=== PATIENT | male | born 1995 | race Caucasian/White ===

== ENCOUNTER 2018-07-25 02:55 | Emergency (ER) | payer OTHER, SELFPAY ==
--- NOTE | 2018-07-25 03:30 | ER ---
Nurse's Notes [facility] Name: Moses Grey Age: 22 yrs Sex: Male : 1995 Arrival Date: 07/25/2018 Time: 02:56 Bed 14 Private MD: Diagnosis: Generalized rash Presentation: 07/25 03:09 Presenting complaint: Patient states: Rashes all over the body. Patient reports ao exposure to heat at work and was told it's given him rashes. Rashes are papular and raised with no fluid accumulation. Patient reports problem started a week ago. Transition of care: patient was not received from another setting of care. Onset of symptoms is unknown. Risk Assessment: Do you want to hurt yourself or someone else? Patient reports no desire to harm self or others. Initial Sepsis Screen: Does the patient meet any 2 criteria? No. Patient's initial sepsis screen is negative. Does the patient have a suspected source of infection? No. Patient's initial sepsis screen is negative. Care prior to arrival: None. 03:09 Method Of Arrival: Ambulatory ao 03:09 Acuity: LISSA 3 ao Historical: - Allergies: 03:12 No Known Allergies; ao - Home Meds: 03:12 None [Active]; ao - PMHx: 03:12 None; ao - PSHx: 03:12 None; ao - Immunization history:: Adult Immunizations up to date. - Social history:: Smoking status: Patient uses tobacco products, smokes two packs cigarettes per day. Patient uses alcohol, occasionally. Patient/guardian denies using street drugs, IV drugs. - Ebola Screening: : Patient negative for fever greater than or equal to 101.5 degrees Fahrenheit, and additional compatible Ebola Virus Disease symptoms Patient denies exposure to infectious person Patient denies travel to an Ebola-affected area in the 21 days before illness onset. Screenin:16 Abuse screen: Denies threats or abuse. Denies injuries from another. Nutritional ao screening: No deficits noted. Tuberculosis screening: No symptoms or risk factors identified. Fall Risk None identified. Assessment: 03:14 General: Appears in no apparent distress. comfortable, Behavior is calm, cooperative, ao appropriate for age. Pain: Complains of pain in All over the body. Neuro: Level of Consciousness is awake, alert, obeys commands, Oriented to person, place, time, situation, Moves all extremities. Full function Speech is normal, Facial symmetry appears normal. Cardiovascular: Heart tones S1 S2 Capillary refill < 3 seconds Patient's skin is warm and dry. Respiratory: Airway is patent Respiratory effort is even, unlabored, Respiratory pattern is regular, symmetrical. GI: Abdomen is non-distended. : No signs and/or symptoms were reported regarding the genitourinary system. EENT: No signs and/or symptoms were reported regarding the EENT system. Derm: Rash noted that is itchy, papular, red, raised. 03:56 Reassessment: DC given to patient. Pt agree with POC and to follow up with ao dermatologies. Vital Signs: 03:13 BP 144 / 83; Pulse 74; Resp 16; Temp 98.8(O); Pulse Ox 100% on R/A; Weight 92.99 kg ao (R); Height 5 ft. 5 in. (165.10 cm) (R); Pain 4/10; 03:13 Body Mass Index 34.11 (92.99 kg, 165.10 cm) ao ED Course: 02:56 Patient arrived in ED. ds1 03:09 Jerry Frank, RN is Primary Nurse. ao 03:12 Triage completed. ao 03:13 Arm band placed on right wrist. Patient placed in an exam room, on a stretcher, on ao pulse oximetry, Patient notified of wait time. 03:16 Patient has correct armband on for positive identification. Pulse ox on. NIBP on. ao 03:20 Aaron Castillo MD is Attending Physician. pkl 03:29 Ko Villanueva MD is Referral Physician. pkl 03:55 No provider procedures requiring assistance completed. Patient did not have IV access ao during this emergency room visit. Administered Medications: 03:35 Drug: SOLU-Medrol 125 mg Route: IM; Site: right deltoid; ao 03:51 Follow up: Response: No adverse reaction ea 03:55 Follow up: Response: No adverse reaction ao Outcome: 03:29 Discharge ordered by . pkl 03:56 Discharged to home ambulatory. ao 03:56 Condition: stable 03:56 Discharge instructions given to patient, Instructed on discharge instructions, follow up and referral plans. Demonstrated understanding of instructions, follow-up care, medications, Prescriptions given X 2. 04:00 Patient left the ED. ao Signatures: Aaron Castillo MD MD pkl Sanford, Demi ds1 Jerry Frank RN RN Michelle Blanca RN RN ea Corrections: (The following items were deleted from the chart) 03:18 03:09 Presenting complaint: Patient states: Rashes all over the body. Patient report ao exposure to heat at work and was told is given rashes. Rashes are like bumps with no fluid accumulation. Patient reports problem started a week ago ao
--- NOTE | 2018-07-25 03:30 | EDPHYS ---
Physician Documentation [facility] Name: Moses Grey Age: 22 yrs Sex: Male : 1995 Arrival Date: 07/25/2018 Time: 02:56 Bed 14 Private MD: ED Physician Aaron Castillo HPI: 07/25 03:26 This 22 yrs old Male presents to ER via Ambulatory with complaints of Rash. pkl 03:26 The rash is located on the body diffusely. The rash can be described as macular, pkl papular. Onset: The symptoms/episode began/occurred 1 week(s) ago. Associated signs and symptoms: Pertinent positives: itching. Historical: - Allergies: 03:12 No Known Allergies; ao - Home Meds: 03:12 None [Active]; ao - PMHx: 03:12 None; ao - PSHx: 03:12 None; ao - Immunization history:: Adult Immunizations up to date. - Social history:: Smoking status: Patient uses tobacco products, smokes two packs cigarettes per day. Patient uses alcohol, occasionally. Patient/guardian denies using street drugs, IV drugs. - Ebola Screening: : Patient negative for fever greater than or equal to 101.5 degrees Fahrenheit, and additional compatible Ebola Virus Disease symptoms Patient denies exposure to infectious person Patient denies travel to an Ebola-affected area in the 21 days before illness onset. ROS: 03:26 Eyes: Negative for injury, pain, redness, and discharge, ENT: Negative for injury, pkl pain, and discharge, Neck: Negative for injury, pain, and swelling, Cardiovascular: Negative for chest pain, palpitations, and edema, Respiratory: Negative for shortness of breath, cough, wheezing, and pleuritic chest pain, Abdomen/GI: Negative for abdominal pain, nausea, vomiting, diarrhea, and constipation, Back: Negative for injury and pain, : Negative for injury, bleeding, discharge, and swelling, MS/Extremity: Negative for injury and deformity. 03:26 Skin: Positive for rash, diffusely. 03:26 Neuro: Negative for altered mental status. Exam: 03:26 Head/Face: Normocephalic, atraumatic. Eyes: Pupils equal round and reactive to light, pkl extra-ocular motions intact. Lids and lashes normal. Conjunctiva and sclera are non-icteric and not injected. Cornea within normal limits. Periorbital areas with no swelling, redness, or edema. ENT: Nares patent. No nasal discharge, no septal abnormalities noted. Tympanic membranes are normal and external auditory canals are clear. Oropharynx with no redness, swelling, or masses, exudates, or evidence of obstruction, uvula midline. Mucous membranes moist. Neck: Trachea midline, no thyromegaly or masses palpated, and no cervical lymphadenopathy. Supple, full range of motion without nuchal rigidity, or vertebral point tenderness. No Meningismus. Chest/axilla: Normal chest wall appearance and motion. Nontender with no deformity. No lesions are appreciated. Cardiovascular: Regular rate and rhythm with a normal S1 and S2. No gallops, murmurs, or rubs. Normal PMI, no JVD. No pulse deficits. Respiratory: Lungs have equal breath sounds bilaterally, clear to auscultation and percussion. No rales, rhonchi or wheezes noted. No increased work of breathing, no retractions or nasal flaring. Abdomen/GI: Soft, non-tender, with normal bowel sounds. No distension or tympany. No guarding or rebound. No evidence of tenderness throughout. Back: No spinal tenderness. No costovertebral tenderness. Full range of motion. MS/ Extremity: Pulses equal, no cyanosis. Neurovascular intact. Full, normal range of motion. Neuro: Awake and alert, GCS 15, oriented to person, place, time, and situation. Cranial nerves II-XII grossly intact. Motor strength 5/5 in all extremities. Sensory grossly intact. Cerebellar exam normal. Normal gait. 03:26 Skin: rash can be described as pustular, raised, and is diffusely located. Vital Signs: 03:13 BP 144 / 83; Pulse 74; Resp 16; Temp 98.8(O); Pulse Ox 100% on R/A; Weight 92.99 kg ao (R); Height 5 ft. 5 in. (165.10 cm) (R); Pain 4/10; 03:13 Body Mass Index 34.11 (92.99 kg, 165.10 cm) ao MDM: 03:20 Patient medically screened. pkl 03:26 Data reviewed: vital signs, nurses notes. pkl Administered Medications: 03:35 Drug: SOLU-Medrol 125 mg Route: IM; Site: right deltoid; ao 03:51 Follow up: Response: No adverse reaction ea 03:55 Follow up: Response: No adverse reaction ao Disposition: 07/25/18 03:29 Discharged to Home. Impression: Generalized rash. - Condition is Stable. - Medication Reconciliation Form, Thank You Letter, Antibiotic Education, Prescription Opioid Use, Work release form form. - Follow up: Ko Villanueva MD; When: 2 - 3 days; Reason: Re-evaluation by your physician. - Problem is new. - Symptoms are unchanged. Signatures: Aaron Castillo MD MD pkl Jerry Frank RN RN Michelle Blanca RN, ea Corrections: (The following items were deleted from the chart) 04:00 03:29 07/25/2018 03:29 Discharged to Home. Impression: Generalized rash. Condition is ao Stable. Forms are Medication Reconciliation Form, Thank You Letter, Antibiotic Education, Prescription Opioid Use. Follow up: Ko Villanueva; When: 2 - 3 days; Reason: Re-evaluation by your physician. Problem is new. Symptoms are unchanged. pkl
[2018-07-25] MEDS ORDERED: METHYLPREDNISOLONE 125 MG INJ ONE (03:38)
== END 2018-07-25 04:00 | disposition home or self-care (01) ==
LOC: ER 02:55
DX: R21 Rash and other nonspecific skin eruption (principal); F17.210 Nicotine dependence, cigarettes, uncomplicated
CPT/HCPCS: 96372; 99283; J2930

== ENCOUNTER 2019-03-27 22:44 | Emergency (ER) | payer SELFPAY ==
[2019-03-27] MEDS ORDERED: MORPHINE 4 MG/ML SYR ONE (23:23)
--- NOTE | 2019-03-28 00:24 | EDPHYS ---
Physician Documentation [facility] Name: Moses Grey Age: 23 yrs Sex: Male : 1995 Arrival Date: 03/27/2019 Time: 22:52 Bed 7 Private MD: ED Physician Tayo Hughes HPI: 03/27 23:39 This 23 yrs old Male presents to ER via Ambulatory with complaints of INJURY rn TO RIBS. 23:39 The patient or guardian reports chest pain that is located primarily in the anterior rn chest wall. Onset: The symptoms/episode began/occurred just prior to arrival. The pain does not radiate. Associated signs and symptoms: Pertinent positives: None. Pertinent negatives: abdominal pain, cough, lightheadedness, nausea, near syncope, palpitations, shortness of breath, syncope, vomiting. The chest pain is described as stabbing. Duration: The patient or guardian reports a single episode, that is still ongoing. Modifying factors: The symptoms are alleviated by nothing. the symptoms are aggravated by deep breath, movement, palpation of area. Severity of pain: At its worst the pain was moderate in the emergency department the pain is unchanged. The patient has not experienced similar symptoms in the past. Reports playing shortstop, hit by softball left anterior chest, direct hit, reports pain to ribs and painful to take deep breath. No sob outside of pain. No hemoptysis. . Historical: - Allergies: 23:03 No Known Allergies; ea - Home Meds: 23:03 None [Active]; ea - PMHx: 23:03 None; ea - PSHx: 23:03 None; ea - Immunization history:: Adult Immunizations up to date. - Social history:: Smoking status: Patient/guardian denies using tobacco. - Ebola Screening: : No symptoms or risks identified at this time. - Family history:: not pertinent. - Hospitalizations: : No recent hospitalization is reported. ROS: 23:39 Constitutional: Negative for fever, chills, and weight loss, Neck: Negative for injury, rn pain, and swelling, Cardiovascular: Negative for palpitations, and edema, Respiratory: Negative for shortness of breath, cough, wheezing Abdomen/GI: Negative for abdominal pain, nausea, vomiting, diarrhea, and constipation, MS/Extremity: Negative for injury and deformity, Skin: Negative for injury, rash, and discoloration, Neuro: Negative for headache, weakness, numbness, tingling, and seizure. 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 Cardiovascular: Regular rate and rhythm with a normal S1 and S2. No gallops, murmurs, or rubs. Normal PMI, no JVD. No pulse deficits. Respiratory: No wheezing, mild splinting with deep breath, equal breath sounds otherwise. Abdomen/GI: sof,t non-tender Vital Signs: 23:04 BP 142 / 85; Pulse 98; Resp 20; Temp 98.6; Pulse Ox 99% ; Weight 95.25 kg; Height 5 ft. ea 9 in. (175.26 cm); 03/28 00:22 BP 121 / 70; Pulse 69; Resp 19; Pulse Ox 100% ; ea 00:35 Temp 98; ea 03/27 23:04 Body Mass Index 31.01 (95.25 kg, 175.26 cm) ea MDM: 03/27 22:52 Patient medically screened. rn 03/28 00:23 Differential diagnosis: Blunt Chest Trauma Chest Wall Contusion. Data reviewed: vital rn signs, nurses notes, radiologic studies, plain films, and as a result, I will discharge patient. Counseling: I had a detailed discussion with the patient and/or guardian regarding: the historical points, exam findings, and any diagnostic results supporting the discharge/admit diagnosis, radiology results, the need for outpatient follow up, to return to the emergency department if symptoms worsen or persist or if there are any questions or concerns that arise at home. Response to treatment: the patient's symptoms have markedly improved after treatment, and as a result, I will discharge patient. Special discussion: I discussed with the patient/guardian in detail that at this point there is no indication for admission to the hospital. It is understood, however, that if the symptoms persist or worsen the patient needs to return immediately for re-evaluation. 00:24 Test interpretation: by ED physician or midlevel provider: plain radiologic studies, rn CXR and rib series negative for pneumothorax or acute rib fracture.. 03/27 23:24 Order name: Ribs Left [facility] [place] 03/27 23:39 Order name: Cardiac monitoring; Complete Time: 00:10 rn 03/27 23:39 Order name: Pulse Ox Monitoring; Complete Time: 00:10 rn Administered Medications: 03/27 23:11 Drug: morphine 4 mg Route: IM; Site: right deltoid; ea 03/28 00:00 Follow up: Response: No adverse reaction; Pain is decreased ea Disposition: 03/28/19 00:24 Discharged to Home. Impression: Rib contusion, Contusion of left front wall of thorax. - Condition is Stable. - Discharge Instructions: Rib Contusion. - Prescriptions for Ibuprofen 800 mg Oral Tablet - take 1 tablet by ORAL route every 12 hours As needed take with food; 20 tablet. Ultram 50 mg Oral Tablet - take 1 tablet by ORAL route every 6 hours As needed; 20 tablet. - Work release form, Medication Reconciliation Form, Thank You Letter, Antibiotic Education, Prescription Opioid Use form. - Follow up: Private Physician; When: As needed; Reason: Recheck today's complaints, Re-evaluation by your physician. - Problem is new. - Symptoms have improved. Signatures: Dispatcher [employer] [facility] [place] Tayo Hughes MD MD rn Antunez, Elena, RN RN ea Corrections: (The following items were deleted from the chart) 03/27 23:40 23:24 Chest Pa And Lat (2 Views) ordered. [facility] 03/28 00:21 00:17 Chest Pa And Lat (2 Views)+RAD.RAD.BRZ ordered. [facility] 00:22 00:18 Ribs Left+RAD.RAD.BRZ ordered. [facility] 00:36 00:24 03/28/2019 00:24 Discharged to Home. Impression: Rib contusion; Contusion of left ea front wall of thorax. Condition is Stable. Discharge Instructions: Rib Contusion. Prescriptions for Ibuprofen 800 mg Oral Tablet - take 1 tablet by ORAL route every 12 hours As needed take with food; 20 tablet, Ultram 50 mg Oral Tablet - take 1 tablet by ORAL route every 6 hours As needed; 20 tablet. and Forms are Medication Reconciliation Form, Thank You Letter, Antibiotic Education, Prescription Opioid Use. Follow up: Private Physician; When: As needed; Reason: Recheck today's complaints, Re-evaluation by your physician. Problem is new. Symptoms have improved. rn
--- NOTE | 2019-03-28 00:24 | ER ---
Nurse's Notes [facility] Name: Moses Grey Age: 23 yrs Sex: Male : 1995 Arrival Date: 03/27/2019 Time: 22:52 Bed 7 Private MD: Diagnosis: Rib contusion;Contusion of left front wall of thorax Presentation: 03/27 23:00 Presenting complaint: Patient states: Pt reports he was hit by a softball on the left ea side of his ribs. Transition of care: patient was not received from another setting of care. Onset of symptoms was March 27, 2019. Risk Assessment: Do you want to hurt yourself or someone else? Patient reports no desire to harm self or others. Initial Sepsis Screen: Does the patient meet any 2 criteria? No. Patient's initial sepsis screen is negative. Does the patient have a suspected source of infection? No. Patient's initial sepsis screen is negative. Care prior to arrival: None. 23:00 Method Of Arrival: Ambulatory ea 23:00 Acuity: LISSA 4 ea Historical: - Allergies: 23:03 No Known Allergies; ea - Home Meds: 23:03 None [Active]; ea - PMHx: 23:03 None; ea - PSHx: 23:03 None; ea - Immunization history:: Adult Immunizations up to date. - Social history:: Smoking status: Patient/guardian denies using tobacco. - Ebola Screening: : No symptoms or risks identified at this time. - Family history:: not pertinent. - Hospitalizations: : No recent hospitalization is reported. Screenin:02 Abuse screen: Denies threats or abuse. Nutritional screening: No deficits noted. ea Tuberculosis screening: No symptoms or risk factors identified. Fall Risk None identified. Assessment: 23:03 General: Appears uncomfortable, Behavior is calm, cooperative, appropriate for age. ea Pain: Complains of pain in left lateral anterior chest. Neuro: Level of Consciousness is awake, alert, obeys commands, Oriented to person, place, time, situation. Cardiovascular: Patient's skin is warm and dry. Respiratory: Airway is patent Respiratory effort is even, unlabored, Respiratory pattern is regular, symmetrical. Derm: Skin is pink, warm \T\ dry. 03/28 00:28 Reassessment: Patient and/or family updated on plan of care and expected duration. Pain ea level reassessed. Patient is alert, oriented x 3, equal unlabored respirations, skin warm/dry/pink. Discharge instruction given to patient, verbalized he understanding of instruction. Pt left ED ambulatory with significant other, pt tolerating well. Vital Signs: 03/27 23:04 BP 142 / 85; Pulse 98; Resp 20; Temp 98.6; Pulse Ox 99% ; Weight 95.25 kg; Height 5 ft. ea 9 in. (175.26 cm); 03/28 00:22 BP 121 / 70; Pulse 69; Resp 19; Pulse Ox 100% ; ea 00:35 Temp 98; ea 03/27 23:04 Body Mass Index 31.01 (95.25 kg, 175.26 cm) ea ED Course: 03/27 22:52 Patient arrived in ED. narciso 22:52 Tayo Hughes MD is Attending Physician. rn 23:00 Michelle Easley RN is Primary Nurse. ea 23:02 Triage completed. ea 23:02 Patient has correct armband on for positive identification. Bed in low position. Call ea light in reach. 23:03 Arm band placed on right wrist. Patient placed in an exam room, on a stretcher, on ea pulse oximetry. 23:55 Ribs Left In Process Unspecified. EDMS 03/28 00:35 No provider procedures requiring assistance completed. Patient did not have IV access ea during this emergency room visit. Administered Medications: 03/27 23:11 Drug: morphine 4 mg Route: IM; Site: right deltoid; ea 03/28 00:00 Follow up: Response: No adverse reaction; Pain is decreased ea Outcome: 00:24 Discharge ordered by . rn 00:36 Discharged to home ambulatory, with significant other. ea 00:36 Condition: improved 00:36 Discharge instructions given to patient, Instructed on discharge instructions, follow up and referral plans. medication usage, Demonstrated understanding of instructions, follow-up care, medications, Prescriptions given X 2. 00:36 Patient left the ED. ea Signatures: Dispatcher [employer] Nidhi Aguilar Roman, MD MD rn Antunez, Elena, RN RN ea
--- NOTE | 2019-03-28 11:00 | RAD REPORT ---
EXAM DESCRIPTION: RAD - Ribs Left - 03/27/2019 11:52 pm CLINICAL HISTORY: The patient is 23 years old and is Male; PAIN TECHNIQUE: Frontal and oblique views of the left ribs and frontal view of the chest. COMPARISON: None. FINDINGS: LUNGS: Unremarkable. No consolidation. PLEURAL SPACE: Unremarkable. No pneumothorax. HEART: Unremarkable. No cardiomegaly. MEDIASTINUM: Unremarkable. BONES/JOINTS: Unremarkable. No acute fracture. IMPRESSION: No acute cardiopulmonary disease. Normal left rib x-rays. Electronically signed by: Cal Valero DO 03/28/2019 12:12 AM CDT Due to temporary technical issues with the PACS/Fluency reporting system, reports are being signed by the in house radiologist as a courtesy to ensure prompt reporting. The interpreting radiologist is f ully responsible for the content of the report.
== END 2019-03-28 00:36 | disposition home or self-care (01) ==
LOC: ER 22:44
DX: S20.212A Contusion of left front wall of thorax, initial encounter (principal); W21.07XA Struck by softball, initial encounter; Y93.89 Activity, other specified; Y92.9 Unspecified place or not applicable
CPT/HCPCS: 96372; 99284

== ENCOUNTER 2020-10-27 20:57 | Emergency (ER) | payer SELFPAY ==
[2020-10-27 23:02] LABS: SARS-COV-2 RT PCR POSITIVE (NEGATIVE)
--- NOTE | 2020-10-27 23:38 | EDPHYS ---
Physician Documentation [facility] Name: Moses Grey Age: 24 yrs Sex: Male : 1995 Arrival Date: 10/27/2020 Time: 21:00 Bed 26 Private MD: ED Physician Aaron Castillo HPI: 10/27 23:25 This 24 yrs old Male presents to ER via Ambulatory with complaints of Cough, pkl Congestion. 23:25 The patient or guardian reports cough, described as mild, with no sputum. Onset: The pkl symptoms/episode began/occurred 3 day(s) ago. Associated signs and symptoms: Pertinent positives: sore throat. Historical: - Allergies: 21:16 No Known Allergies; ll1 - PMHx: 21:16 None; ll1 - PSHx: 21:16 None; ll1 - Immunization history:: Flu vaccine is up to date. - Social history:: Smoking status: Patient reports the use of cigarette tobacco products, denies chronic smoking, but will smoke occasionally. ROS: 23:25 Eyes: Negative for injury, pain, redness, and discharge. pkl 23:25 ENT: Positive for sore throat. 23:25 Neck: Negative for stiffness. 23:25 Cardiovascular: Negative for chest pain. 23:25 Respiratory: Positive for cough, with no reported sputum. 23:25 Abdomen/GI: Negative for abdominal pain, nausea, vomiting, and diarrhea. 23:25 Back: Negative for acute changes. 23:25 : Negative for urinary symptoms. 23:25 MS/extremity: Negative for acute changes. 23:25 Skin: Negative for rash. 23:25 Neuro: Negative for altered mental status. Exam: 23:25 Head/Face: Normocephalic, atraumatic. Eyes: Pupils equal round and reactive to light, pkl extra-ocular motions intact. Lids and lashes normal. Conjunctiva and sclera are non-icteric and not injected. Cornea within normal limits. Periorbital areas with no swelling, redness, or edema. ENT: Nares patent. No nasal discharge, no septal abnormalities noted. Tympanic membranes are normal and external auditory canals are clear. Oropharynx with no redness, swelling, or masses, exudates, or evidence of obstruction, uvula midline. Mucous membranes moist. Neck: Trachea midline, no thyromegaly or masses palpated, and no cervical lymphadenopathy. Supple, full range of motion without nuchal rigidity, or vertebral point tenderness. No Meningismus. Chest/axilla: Normal chest wall appearance and motion. Nontender with no deformity. No lesions are appreciated. Cardiovascular: Regular rate and rhythm with a normal S1 and S2. No gallops, murmurs, or rubs. Normal PMI, no JVD. No pulse deficits. Respiratory: Lungs have equal breath sounds bilaterally, clear to auscultation and percussion. No rales, rhonchi or wheezes noted. No increased work of breathing, no retractions or nasal flaring. Abdomen/GI: Soft, non-tender, with normal bowel sounds. No distension or tympany. No guarding or rebound. No evidence of tenderness throughout. Back: No spinal tenderness. No costovertebral tenderness. Full range of motion. Skin: Warm, dry with normal turgor. Normal color with no rashes, no lesions, and no evidence of cellulitis. MS/ Extremity: Pulses equal, no cyanosis. Neurovascular intact. Full, normal range of motion. Neuro: Awake and alert, GCS 15, oriented to person, place, time, and situation. Cranial nerves II-XII grossly intact. Motor strength 5/5 in all extremities. Sensory grossly intact. Cerebellar exam normal. Normal gait. Vital Signs: 21:16 BP 129 / 79; Pulse 69; Resp 17; Temp 98.6; Pulse Ox 100% ; Weight 90.72 kg; Height 5 ll1 ft. 9 in. (175.26 cm); Pain 5/10; 21:36 BP 111 / 86; Pulse 85; Resp 18; Pulse Ox 98% on R/A; vg1 22:30 BP 115 / 80; Pulse 82; Resp 16; Pulse Ox 100% on R/A; vg1 23:30 BP 112 / 76; Pulse 80; Resp 18; Pulse Ox 99% on R/A; vg1 21:16 Body Mass Index 29.53 (90.72 kg, 175.26 cm) ll1 MDM: 21:18 Patient medically screened. pkl 23:25 Data reviewed: vital signs, nurses notes, lab test result(s). ED course: Discussed lab pkl results with patient. Advised to quarantine for 10 days. Follow up with PCP as needed. To return if symptoms are worse. Patient understood instructions. 01/11 21:26 Order name: Strep; Complete Time: 22:59 pkl 10/27 22:28 Order name: Throat Culture EDMS 10/27 23:03 Order name: COVID-19/FLU A+B; Complete Time: 23:24 EDMS Administered Medications: No medications were administered Disposition: 10/27/20 23:37 Discharged to Home. Impression: Positive Covid 19. - Condition is Stable. - Work release form, Medication Reconciliation Form, Thank You Letter, Antibiotic Education, Prescription Opioid Use form. - Follow up: Private Physician; When: 2 - 3 days; Reason: Re-evaluation by your physician. - Problem is new. - Symptoms have improved. Signatures: Dispatcher [employer] EDOK Aaron Castillo MD MD pkl Joy Martinez RN RN vg1 Jenny Bird RN RN ll1 Corrections: (The following items were deleted from the chart) 21:57 21:26 CORONAVIRUS+MR.LAB.BRZ ordered. EDOK EDMS 21:58 21:26 Influenza Screen (A \T\ B)+BA.LAB.BRZ ordered. EDOK EDMS 23:44 23:37 10/27/2020 23:37 Discharged to Home. Impression: Poitive Covid 19. Condition is pkl Stable. Forms are Medication Reconciliation Form, Thank You Letter, Antibiotic Education, Prescription Opioid Use. Follow up: Private Physician; When: 2 - 3 days; Reason: Re-evaluation by your physician. Problem is new. Symptoms have improved. pkl 23:54 23:44 10/27/2020 23:37 Discharged to Home. Impression: Positive Covid 19. Condition is vg1 Stable. Forms are Medication Reconciliation Form, Thank You Letter, Antibiotic Education, Prescription Opioid Use, Work release form. Follow up: Private Physician; When: 2 - 3 days; Reason: Re-evaluation by your physician. Problem is new. Symptoms have improved. pkl
--- NOTE | 2020-10-27 23:38 | ER ---
Nurse's Notes [facility] Name: Moses Grey Age: 24 yrs Sex: Male : 1995 Arrival Date: 10/27/2020 Time: 21:00 Bed 26 Private MD: Diagnosis: Positive Covid 19 Presentation: 10/27 21:16 Chief complaint: Patient states: Cough, congestion, sore throat for 3 days. No fever. ll1 Coronavirus screen: Client denies travel out of the [place] in the last 14 days. congestion, cough unrelated to allergies, sore throat, Client presents with at least one sign or symptom that may indicate coronavirus-19. Standard/surgical mask placed on the client. Ebola Screen: Patient denies travel to an Ebola-affected area in the 21 days before illness onset. Resp Distress? No respiratory distress is noted at this time. Initial Sepsis Screen: Does the patient meet any 2 criteria? No. Patient's initial sepsis screen is negative. Does the patient have a suspected source of infection? Yes: Productive cough/pneumonia. Risk Assessment: Do you want to hurt yourself or someone else? Patient reports no desire to harm self or others. Onset of symptoms was October 25, 2020. 21:16 Method Of Arrival: Ambulatory ll1 21:16 Acuity: LISSA 4 ll1 Historical: - Allergies: 21:16 No Known Allergies; ll1 - PMHx: 21:16 None; ll1 - PSHx: 21:16 None; ll1 - Immunization history:: Flu vaccine is up to date. - Social history:: Smoking status: Patient reports the use of cigarette tobacco products, denies chronic smoking, but will smoke occasionally. Screenin:36 Abuse screen: Denies threats or abuse. Nutritional screening: No deficits noted. vg1 Tuberculosis screening: No symptoms or risk factors identified. Fall Risk None identified. Assessment: 21:35 General: Appears in no apparent distress. comfortable, Behavior is calm, cooperative. vg1 Pain: Denies pain. Neuro: Level of Consciousness is awake, alert, obeys commands, Oriented to person, place, time, situation. Cardiovascular: Patient's skin is warm and dry. Respiratory: Airway is patent Respiratory effort is even, unlabored, Respiratory pattern is regular, symmetrical, Breath sounds are clear bilaterally. Respiratory: Reports cough that is productive. GI: : No signs and/or symptoms were reported regarding the genitourinary system. EENT: Reports sore throat.. Derm: Skin is intact, is healthy with good turgor. Musculoskeletal: Circulation, motion, and sensation intact. 22:30 Reassessment: Patient appears in no apparent distress at this time. Patient is alert, vg1 oriented x 3, equal unlabored respirations, skin warm/dry/pink. Patient denies pain at this time. 23:38 Reassessment: No changes from previously documented assessment. vg1 Vital Signs: 21:16 BP 129 / 79; Pulse 69; Resp 17; Temp 98.6; Pulse Ox 100% ; Weight 90.72 kg; Height 5 ll1 ft. 9 in. (175.26 cm); Pain 5/10; 21:36 BP 111 / 86; Pulse 85; Resp 18; Pulse Ox 98% on R/A; vg1 22:30 BP 115 / 80; Pulse 82; Resp 16; Pulse Ox 100% on R/A; vg1 23:30 BP 112 / 76; Pulse 80; Resp 18; Pulse Ox 99% on R/A; vg1 21:16 Body Mass Index 29.53 (90.72 kg, 175.26 cm) ll1 ED Course: 21:00 Patient arrived in ED. cf2 21:16 Arm band placed on. ll1 21:17 Triage completed. ll1 21:18 Aaron Castillo MD is Attending Physician. pkl 21:24 Joy Martinez, RN is Primary Nurse. vg1 21:33 COVID swab sent to lab. Flu and/or RSV swab sent to lab. Strep swab sent to lab. jp3 21:33 Patient maintains SpO2 saturation greater than 95% on room air. jp3 21:36 Patient has correct armband on for positive identification. Bed in low position. Call vg1 light in reach. 23:42 No provider procedures requiring assistance completed. Patient did not have IV access vg1 during this emergency room visit. Administered Medications: No medications were administered Outcome: 23:37 Discharge ordered by . pkl 23:54 Discharged to home ambulatory. vg1 23:54 Condition: stable 23:54 Discharge instructions given to patient, Instructed on discharge instructions, follow up and referral plans. Demonstrated understanding of instructions, follow-up care. 23:54 Patient left the ED. vg1 Signatures: Aaron Castillo MD MD pkHuseyin Friend jp3 Olga Bermudez cf2 Joy Martinez, RN RN vg1 Jenny Bird RN RN ll1
[2020-10-28 00:09] VITALS: TEMP 98.6
[2020-10-28 00:13] VITALS: BP 112/76; O2SAT 99
== END 2020-10-27 23:54 | disposition home or self-care (01) ==
LOC: ER 20:57
DX: U07.1 COVID-19 (principal); F17.210 Nicotine dependence, cigarettes, uncomplicated
CPT/HCPCS: 0240U; 87070; 87081; 99284